=== PATIENT | female | born 1980 | race Caucasian/White ===

== ENCOUNTER 2019-07-05 20:23 | Emergency (ER) | payer OTHER ==
[2019-07-05] MEDS ORDERED: Sodium Chloride 0.9% 10 ML Syringe FLUSH PRN (20:27)
[2019-07-05 20:53] LABS: CHLORIDE,CL 105 mmol/L (98-107); SODIUM,NA 141 mmol/L (136-145)
--- NOTE | 2019-07-05 21:07 | EDM.PDOC ---
ED HPI GENERAL MEDICAL PROBLEM - General Chief Complaint: Chest Pain Stated Complaint: chest pain, shortness of breath Time Seen by Provider: 07/05/19 20:39 Source of Information: Reports: Patient History Limitations: Reports: No Limitations - History of Present Illness INITIAL COMMENTS - FREE TEXT/NARRATIVE: Patient comes to ER with complaint of SOB present for about two weeks. Gradually worsening. No history of similar SOB in past. Nonsmoker. No history of lung disease. No obvious accompanying illness/cold symptoms/cough/sputum. Improves at rest. Worse with activity. Feeling poorly at work and checked O2 sats on work monitor, they were 88%. Also has chest pain that radiates to back between shoulder blades. Has had similar chest pain in past. Denies injuries. Does not worsen with movement/breathing. No fever/chills/other reported changes. Was seen at clinic and had workup/chest xray that was unremarkable. Denies chance of . - Related Data Allergies Allergy/AdvReac Type Severity Reaction Status Date / Time sulfamethoxazole Allergy Hives Verified 07/05/19 22:52 [From Bactrim] tramadol HCl [From Ultram] Allergy Itching Verified 07/05/19 22:52 trimethoprim [From Bactrim] Allergy Hives Verified 07/05/19 22:52 Home Meds: Home Meds Gabapentin 600 mg PO BEDTIME 09/03/13 [History] Magnesium Oxide [Magnesium] 400 mg PO DAILY 09/03/13 [History] Multivitamin [Daily Multiple Vitamin] 1 each PO BEDTIME 09/03/13 [History] Omeprazole [priLOSEC OTC] 20 mg PO DAILY PRN 09/03/13 [History] SUMAtriptan succinate [Sumatriptan Succinate] 100 mg PO ASDIRECTED PRN 09/03/13 [History] medroxyPROGESTERone Acetate [Depo-Provera] 150 mg IM ASDIRECTED 09/03/13 [ History] Ibuprofen [Advil] 600 mg PO Q6H PRN 10/22/13 [History] ALPRAZolam [Alprazolam] 0.25 mg PO BID PRN 06/27/18 [History] Erenumab-Aooe [Aimovig Autoinjector] 1 dose SUBCUT Q30D 06/27/18 [History] Escitalopram [Lexapro] 20 mg PO BEDTIME 06/27/18 [History] Naproxen 500 mg PO DAILY 06/27/18 [History] Past Medical History Cardiovascular History: Reports: Other (See Below) (Valvular insufficiency, Raynaud's disease) Neurological History: Reports: Migraines Psychiatric History: Reports: Anxiety - Past Surgical History Other Head Surgeries/Procedures: Chiari Malformation surgery Other Neurological Surgeries/Procedures: Chiari Malformation surgery Social & Family History - Living Situation & Occupation Occupation: Employed ED ROS GENERAL - Review of Systems Review Of Systems: See Below Constitutional: Reports: No Symptoms HEENT: Reports: No Symptoms Respiratory: Reports: Shortness of Breath. Denies: Wheezing, Pleuritic Chest Pain, Cough, Sputum, Hemoptysis Cardiovascular: Reports: Chest Pain, Dyspnea on Exertion, Other (heart rate increases with activity). Denies: Edema, Lightheadedness, Orthopnea, Palpitations, Syncope GI/Abdominal: Reports: No Symptoms : Reports: No Symptoms Musculoskeletal: Reports: No Symptoms Skin: Reports: No Symptoms Neurological: Reports: Other (Describes having electrical feeling in muscles when she walks/takes steps) Psychiatric: Reports: No Symptoms Hematologic/Lymphatic: Reports: No Symptoms ED EXAM, GENERAL - Physical Exam Exam: See Below Exam Limited By: No Limitations General Appearance: Alert, No Apparent Distress, Anxious, Other (has circles under eyes, bruising on right side of jaw from recent surgery) Eye Exam: Bilateral Eye: EOMI, PERRL Ears: Normal External Exam Nose: No: Nasal Deformity, Nasal Swelling, Nasal Drainage Throat/Mouth: Normal Lips, Normal Voice, No Airway Compromise Head: Other (bruising right jawline). No: Facial Swelling Neck: Supple Respiratory/Chest: No Respiratory Distress, Lungs Clear, Normal Breath Sounds, No Accessory Muscle Use, Chest Non-Tender Cardiovascular: Normal Peripheral Pulses, Regular Rate, Rhythm, No Murmur GI/Abdominal: Normal Bowel Sounds, Soft, Non-Tender (Female) Exam: Deferred Rectal (Female) Exam: Deferred Back Exam: Paraspinal Tenderness (lateral to spine on left between shoulder blades) Extremities: Normal Range of Motion, Non-Tender, Normal Capillary Refill Neurological: Alert, Oriented, Normal Cognition, No Motor/Sensory Deficits Psychiatric: Anxious EKG INTERPRETATION EKG Date: 07/05/19 Time: 20:30 Rhythm: NSR Rate (Beats/Min): 77 Ozone: Normal P-Wave: Present QRS: Normal ST-T: Normal QT: Normal Course - Vital Signs Last Recorded V/S: Last Vital Signs Temp 35.6 C 07/05/19 23:00 Pulse 81 07/05/19 23:00 Resp 16 07/05/19 23:00 BP 114/72 07/05/19 23:00 Pulse Ox 96 07/05/19 23:00 - Orders/Labs/Meds Orders: Active Orders 24 hr Category Date Time Status EKG Documentation Completion [RC] ASDIRECTED Care 07/05/19 20:27 Active RT Aerosol Therapy [RC] ASDIRECTED Care 07/05/19 22:15 Active Chest 2V [CR] Stat Exams 07/05/19 20:27 Taken Chest wo Cont [CT] Stat Exams 07/05/19 21:50 Taken Saline Lock Insert [OM.PC] Routine Oth 07/05/19 20:27 Ordered Labs: Laboratory Tests 07/05/19 07/05/19 07/05/19 Range/Units 20:30 20:30 20:30 WBC 7.2 (4.0-10.2) K/uL RBC 4.08 (3.77-5.09) M/uL Hgb 12.6 (11.7-15.5) g/dL Hct 37.3 (34.0-46.0) % MCV 91.4 (84.0-98.0) fL MCH 30.9 (28.2-33.3) pg MCHC 33.8 (31.7-36.0) g/dL RDW 12.1 (11.2-14.1) % Plt Count 274 (150-350) K/uL Neut % (Auto) 50.0 (45.0-80.0) % Lymph % (Auto) 40.6 (10.0-50.0) % [place] % (Auto) 7.0 (2.0-14.0) % Eos % (Auto) 1.7 (0.0-5.0) % Baso % (Auto) 0.7 (0.0-2.0) % Neut # (Auto) 3.60 (1.40-7.00) K/uL Lymph # (Auto) 2.92 (0.50-3.50) K/uL [place] # (Auto) 0.50 (0.00-1.00) K/uL Eos # (Auto) 0.12 (0.00-0.50) K/uL Baso # (Auto) 0.05 (0.00-0.20) K/uL D-Dimer, Quantitative 248 (0-400) ng/mL Sodium 141 (136-145) mmol/L Potassium 3.5 (3.5-5.1) mmol/L Chloride 105 (98-107) mmol/L Carbon Dioxide 26.4 (21.0-32.0) mmol/L BUN 12 (7-18) mg/dL Creatinine 0.79 (0.51-1.17) mg/dL Est Cr Clr Drug Dosing TNP Estimated GFR (MDRD) > 60 mL/min Glucose 108 H (74-106) mg/dL Calcium 9.3 (8.5-10.1) mg/dL Magnesium 1.7 L (1.8-2.4) mg/dL Total Bilirubin 0.2 (0.2-1.0) mg/dL AST 14 L (15-37) U/L ALT 18 (12-78) U/L Alkaline Phosphatase 69 (46-116) IU/L Troponin I 0.000 (0.000-0.056) ng/mL Total Protein 7.6 (6.4-8.2) g/dL Albumin 3.8 (3.4-5.0) g/dL Meds: Medications Discontinued Medications Generic Name Dose Route Start Last Admin Trade Name Freq PRN Reason Stop Dose Admin Albuterol/Ipratropium 3 ml 07/05/19 22:15 07/05/19 22:15 Duoneb 3.0-0.5 Mg/3 Ml NEB 07/05/19 22:16 3 ml ONETIME ONE Administration Prednisone 40 mg 07/05/19 22:58 07/05/19 23:08 Prednisone PO 07/05/19 22:59 40 mg ONETIME ONE Administration Sodium Chloride 10 ml 07/05/19 20:27 Saline Flush FLUSH ASDIRECTED PRN Keep Vein Open - Radiology Interpretation Free Text/Narrative:: Chest xray unremarkable for focal infiltrate/obvious abnormalities - Re-Assessments/Exams Free Text/Narrative Re-Assessment/Exam: Nonfocal exam. CBC/Chem/Trop/DDimer/Mag performed. Mag mildly decreased. Otherwise labs unremarkable. Chest xray and EKG unremarkable. Patient then was asked to walk up and down the [place]. Noted to have heart rate jump to 115-120 and O2 sats decreased to 88%. This improved once patient resting on ER bed. Call placed to [place] and patient discussed with /hospitalist. He recommended we get non-contrast CT given negative DDimer. If nothing specific noted, recommended outpatient follow up. Patient does have planned follow up with local primary provider in AM. CT scan ordered. Will also order DuoNeb to see if any improvement noted in sensation of SOB. Free Text/Narrative Re-Assessment/Exam: Radiology noted scattered inflammatory changes on CT, but no obvious other cause for patient's SOB/chest discomfort complaint. Patient did ambulate after DuoNeb treatment and was noted to have normal O2 sats with ambulation/improved. Prednisone given PO. Plan at this time is to see how she feels overnight and she has plans to follow up at clinic tomorrow morning. Departure - Departure Time of Disposition: 23:00 Disposition: Home, Self-Care 01 Condition: Good Clinical Impression: SOB (shortness of breath) on exertion, Atypical chest pain - Discharge Information *PRESCRIPTION DRUG MONITORING PROGRAM REVIEWED*: Not Applicable *COPY OF PRESCRIPTION DRUG MONITORING REPORT IN PATIENT LIYAH: Not Applicable Instructions: Shortness of Breath, Adult, [id number], Nonspecific Chest Pain , Albuterol; Ipratropium solution for inhalation, Prednisone tablets Referrals: Estrella Koroma OUTSOLE SCHEDULER [Primary Care Provider] - Forms: ED Department Discharge, ED Return to Work/School Form Additional Instructions: Follow up tomorrow with clinic as currently planned. Return to ER if you have sudden worsening problems. Sepsis Event Note - Focused Exam Vital Signs: Vital Signs Temp Pulse Resp BP Pulse Ox 07/05/19 23:00 35.6 C 81 16 114/72 96 07/05/19 22:45 81 94 L 07/05/19 22:15 35.6 C 81 16 119/52 L 100 07/05/19 21:26 77 20 118/60 100 07/05/19 21:22 115 H 88 L 07/05/19 21:20 82 18 129/87 100 07/05/19 21:00 36.1 C 76 18 104/72 100 07/05/19 20:30 78 18 122/82 100 07/05/19 20:25 36.0 C 83 20 137/89 100 Date Exam was Performed: 07/06/19 Time Exam was Performed: 06:39 - My Orders Last 24 Hours: My Active Orders 07/05/19 20:27 EKG Documentation Completion [RC] ASDIRECTED Chest 2V [CR] Stat Saline Lock Insert [OM.PC] Routine 07/05/19 21:50 Chest wo Cont [CT] Stat 07/05/19 22:15 RT Aerosol Therapy [RC] ASDIRECTED - Assessment/Plan Last 24 Hours: My Active Orders 07/05/19 20:27 EKG Documentation Completion [RC] ASDIRECTED Chest 2V [CR] Stat Saline Lock Insert [OM.PC] Routine 07/05/19 21:50 Chest wo Cont [CT] Stat 07/05/19 22:15 RT Aerosol Therapy [RC] ASDIRECTED
[2019-07-05] MEDS: Albuterol/Ipratropium 3.0-0.5 MG/3 ML Neb Soln NEB ONE (22:15)
[2019-07-05] MEDS: predniSONE 20 MG Tab PO ONE (23:08)
== END 2019-07-05 23:20 | disposition home or self-care (01) ==
LOC: LL.ED 20:23
DX: R07.89 Other chest pain (principal); R06.02 Shortness of breath; F41.9 Anxiety disorder, unspecified; Z88.2 Allergy status to sulfonamides; Z88.5 Allergy status to narcotic agent; Z79.899 Other long term (current) drug therapy
CPT/HCPCS: 36415; 71046; 71250; 80053; 83735; 84484; 85025; 85379; 93005; 99285-25; A9270-GY; J7620-GY

== ENCOUNTER 2021-08-24 17:05 | Emergency (ER) | payer BC, OTHER ==
[2021-08-24] MEDS ORDERED: Sodium Chloride 0.9% 1,000 ML IV SCH (17:45)
[2021-08-24] MEDS ORDERED: Sodium Chloride 0.9% 10 ML Syringe FLUSH PRN (17:45)
[2021-08-24 18:37] LABS: CHLORIDE,CL 99 mmol/L (98-107); SODIUM,NA 137 mmol/L (136-145)
[2021-08-24 18:38] LABS: ANION GAP 21.1 meq/L (7-15)
[2021-08-24 18:52] LABS: BARBITURATE SCREEN,URINE NEGATIVE (NEGATIVE); BENZODIAZEPINES SCREEN,URINE NEGATIVE (NEGATIVE); EDDP,URINE SCREEN NEGATIVE (NEGATIVE); TCA SCREEN,URINE NEGATIVE (NEGATIVE); THC SCREEN,URINE 50 NG/ML NEGATIVE (NEGATIVE)
[2021-08-24 18:55] LABS: BUPRENORPHINE SCREEN,URINE NEGATIVE (NEGATIVE)
[2021-08-24] MEDS ORDERED: Metoprolol Tartrate 25 MG Tab PO ONE (19:14)
[2021-08-24] MEDS ORDERED: LORazepam 0.5 MG Tab PO ONE (20:16)
[2021-08-24] MEDS: Metoprolol Tartrate 25 MG Tab PO SCH (20:34)
== END 2021-08-24 20:35 | disposition home or self-care (01) ==
LOC: LL.ED 17:05
DX: R00.0 Tachycardia, unspecified (principal); F41.9 Anxiety disorder, unspecified; Z20.822 Contact with and (suspected) exposure to COVID-19; Z79.899 Other long term (current) drug therapy; Z88.2 Allergy status to sulfonamides; Z88.1 Allergy status to other antibiotic agents; Z88.8 Allergy status to other drugs, medicaments and biological substances; Z72.0 Tobacco use
CPT/HCPCS: 36415; 71046; 80053; 80305; 80307; 81003; 81025; 83735; 83880; 84443; 84484; 85025; 85379; 87635; 93005; 93010; 99284; 99285; A9270; J7030; U0002

== ENCOUNTER 2022-07-28 19:51 | Emergency (ER) | payer BC ==
[2022-07-28] MEDS ORDERED: Ketorolac 30 MG/ML SDV IM ONE (20:48)
== END 2022-07-28 21:00 | disposition home or self-care (01) ==
LOC: LL.ED 19:51
DX: S99.912A Unspecified injury of left ankle, initial encounter (principal); K21.9 Gastro-esophageal reflux disease without esophagitis; Z88.2 Allergy status to sulfonamides; Z88.6 Allergy status to analgesic agent; Z79.899 Other long term (current) drug therapy; X50.1XXA Overexertion from prolonged static or awkward postures, initial encounter
CPT/HCPCS: 73610-LT; 96372; 99283; J1885

== ENCOUNTER 2023-08-14 09:42 | Day surgery (SDC) | payer BC ==
[~2023-08-14 09:42] MED LIST: Midazolam 1 MG/ML 2 ML SDV ONE; Propofol 200 MG/20 ML SDV ONE
[2023-08-14] MEDS ORDERED: Sodium Chloride 0.9% 10 ML Syringe FLUSH PRN (09:45)
[2023-08-14] MEDS: Lactated Ringers 1,000 ML IV SCH (10:00)
== END 2023-08-14 12:20 | disposition home or self-care (01) ==
LOC: LL.SDS 09:42
PROVIDERS: ATTEND Surgery
DX: K92.1 Melena (principal); K21.9 Gastro-esophageal reflux disease without esophagitis; K62.5 Hemorrhage of anus and rectum; I10 Essential (primary) hypertension; Z87.891 Personal history of nicotine dependence; Z79.899 Other long term (current) drug therapy; Z88.8 Allergy status to other drugs, medicaments and biological substances; Z88.5 Allergy status to narcotic agent; Z88.2 Allergy status to sulfonamides
CPT/HCPCS: 00811; 45380; J2250; J2704; J7120

== ENCOUNTER 2025-03-24 09:28 | Day surgery (SDC) | payer BC, OTHER ==
[~2025-03-24 09:28] MED LIST changes: +Sodium Chloride 0.9% 10 ML Syringe FLUSH PRN
[2025-03-24] MEDS: Lactated Ringers 1,000 ML IV SCH (10:03)
[2025-03-24] MEDS ORDERED: Propofol 200 MG/20 ML SDV IV ONE (10:37)
== END 2025-03-24 11:38 | disposition home or self-care (01) ==
LOC: LL.SDS 09:28
PROVIDERS: ATTEND Surgery
DX: K29.50 Unspecified chronic gastritis without bleeding (principal); K20.0 Eosinophilic esophagitis; K21.9 Gastro-esophageal reflux disease without esophagitis; E66.9 Obesity, unspecified; I10 Essential (primary) hypertension; Z88.8 Allergy status to other drugs, medicaments and biological substances; Z68.27 Body mass index [BMI] 27.0-27.9, adult; Z79.899 Other long term (current) drug therapy
CPT/HCPCS: 00731; J1596; J2250; J2704; J7120